=== PATIENT | male | born 1990 | race Caucasian/White ===

== ENCOUNTER 2017-02-28 02:43 | Emergency (ER) | payer MEDICAID ==
[~2017-02-28] VITALS: Ht 160 cm; Wt 84.5 kg
[2017-02-28 02:46] VITALS: Ht 160 cm; Wt 84.5 kg
[2017-02-28] MEDS ORDERED: SOD CHLORIDE 0.9% 1,000 ML IV ONE (02:53)
[2017-02-28] MEDS ORDERED: morphine 4 MG/ML VIAL IV ONE (02:55)
[2017-02-28] MEDS ORDERED: ONDANSETRON 4 MG INJ IV ONE (02:55)
[2017-02-28] MEDS ORDERED: KETOROLAC 30 MG INJ IV ONE (02:55)
[2017-02-28 03:21] LABS: ADD SCAN DIFF NO
[2017-02-28 03:28] LABS: BASOPHILS % 0.3 % (0.0-2.0); EOSINOPHILS # 0.1 10^3/ul (0.0-0.5); EOSINOPHILS % 1.1 % (0.0-7.0); HEMATOCRIT 41.6 % (42.0-52.0); HEMOGLOBIN 14.9 g/dl (14.0-18.0); LYMPHOCYTES # 2.8 10^3/ul (0.8-2.9); LYMPHOCYTES % 39.9 % (15.0-51.0); MEAN CORPUSCULAR HEMOGLOBIN 31.6 pg (29.0-33.0); MEAN CORPUSCULAR HGB CONC 35.8 g/dl (32.0-37.0); MEAN CORPUSCULAR VOLUME 88.3 fl (82.0-101.0); MEAN PLATELET VOLUME 9.7 fl (7.4-10.4); MONOCYTE # 0.8 10^3/ul (0.3-0.9); MONOCYTES % 11.5 % (0.0-11.0); NEUTROPHIL # 3.3 10^3/ul (1.6-7.5); NEUTROPHILS % 46.8 % (39.0-77.0); PLATELET COUNT 246 10^3/UL (140-415); RED BLOOD COUNT 4.71 10^6/ul (4.70-6.10); RED CELL DISTRIBUTION WIDTH 12.6 % (11.5-14.5); WHITE BLOOD COUNT 7.1 10^3/ul (4.8-10.8)
[2017-02-28 03:33] LABS: ALBUMIN 4.5 g/dl (3.3-4.9); POTASSIUM 3.1 mmol/L (3.5-5.1)
[2017-02-28 03:35] LABS: CREATININE 1.14 mg/dl (0.61-1.24)
[2017-02-28 03:36] LABS: ALBUMIN/GLOBULIN RATIO 1.36; CALCIUM 9.5 mg/dl (8.4-10.2); TOTAL PROTEIN 7.8 g/dl (6.1-8.1)
[2017-02-28] MEDS ORDERED: NAPR220C2 PO (03:36)
[2017-02-28 03:44] LABS: ADD UMIC YES; URINE BILIRUBIN (Dip) 2+ (NEGATIVE); URINE BLOOD (Dip) 3+ (NEGATIVE); URINE COLOR YELLOW (YELLOW); URINE GLUCOSE (Dip) NEGATIVE (NEGATIVE); URINE KETONES (Dip) 15 (NEGATIVE); URINE LEUKOCYTE ESTERASE (Dip) NEGATIVE (NEGATIVE); URINE NITRITE (Dip) NEGATIVE (NEGATIVE); URINE TOTAL PROTEIN (Dip) 1+ (NEGATIVE); URINE UROBILINOGEN (Dip) 1.0 E.U./dL (0.1-1.0)
[2017-02-28 03:59] LABS: ICTOTEST NEGATIVE (NEGATIVE); URINE RBCS >200 /HPF (0)
[2017-02-28 04:00] LABS: BACTERIA,URINE FEW; MUCUS,URINE FEW; SQUAMOUS EPITHELIAL CELL,UR FEW
--- NOTE | 2017-02-28 04:17 | RADRPT ---
PROCEDURE: CT Abdomen and pelvis without contrast. CLINICAL INDICATION: Abdominal pain. TECHNIQUE: CT scan of the abdomen and pelvis was performed on a multi-detector high-resolution CT scanner. Contiguous axial images were obtained from the lung bases to the ischial tuberosities wit hout intravenous contrast. Coronal and sagittal reformatted images were also obtained. Images were reviewed on the PACS workstation. One or more of the following dose reduction techniques were used: - Automated exposure control. - Adjustment of the mA and/or kV according to patient size. - Use of iterative reconstruction technique. Exam CTD/vol = 10.54 mGy. Total exam DLP = 669.92 mGy-cm. COMPARISON: None. FINDINGS: Evaluation of the lung bases demonstrates no pleural or parenchymal disease. Abdomen: The liver is normal in size. There is no focal mass or dilatation of the biliary tree. T he gallbladder is not distended. Multiple radiolucent gallstones are present. The spleen, pancreas a nd bilateral adrenal glands are within normal limits. Bilateral kidneys are normal in size with no contour deforming mass identified. There are multiple punctate 1 mm right renal calculi. There is mild left-sided hydronephrosis. There is no retroperitoneal adenopathy. The abdominal aorta is of normal caliber. There is no abnormal bowel wall thickening or distension. There is no bowel obstruction or free air . A normal appendix is identified. There is no diverticulosis or diverticulitis. There is no asci felisha. Pelvis: The bladder is unremarkable. There is a 4 x 3 mm calculus at the left ureterovesicular elham ction. The prostate and seminal vesicles are within normal limits. There is no significant pelvic adenopathy or free fluid. Evaluation of the osseous structures demonstrates no suspicious lytic or blastic lesion. IMPRESSION: Left ureterovesicular junction 4 x 3 mm calculus with mild left-sided hydronephrosis. Nonobstructing right renal calculi. Cholelithiasis. .Alex Flynn MD, MD Date Time Electronically viewed and signed by .Alex Flynn MD, MD on 02/28/2017 04:17 .T/
--- NOTE | 2017-02-28 04:46 | ERD ---
ER Documentation Chief Complaint Date/Time DATE: 02/28/17 TIME: 04:45 Chief Complaint left sided abd pain today HPI This is a 27-year-old male left-sided abdominal pain sudden onset earlier today colicky in nature. Mild to moderate intensity. Mild nausea. No vomiting. No fevers or chills. No other current complaints. ROS All systems reviewed and are negative except as per history of present illness. Medications Home Meds Reported Medications Naproxen* (Aleve*) 220 Mg Capsule, 420 MG PO TID, #90 CAP 02/28/17 Allergies Allergies: Coded Allergies: No Known Drug Allergy (Verified Allergy, Mild, 02/28/17) PMhx/Soc Medical and Surgical Hx: pt denies Medical Hx, pt denies Surgical Hx History of Surgery: No Anesthesia Reaction: No Hx Neurological Disorder: No Hx Respiratory Disorders: No Hx Cardiac Disorders: No Hx Psychiatric Problems: No Hx Miscellaneous Medical Probl: No (NO MEDICAL HX) Hx Alcohol Use: No Hx Substance Use: No Hx Tobacco Use: No Smoking Status: Unknown if ever smoked Physical Exam Vitals Vital Signs Date Time Temp Pulse Resp B/P Pulse Ox O2 Delivery O2 Flow Rate FiO2 02/28/17 02:46 98.4 85 20 124/63 100 Physical Exam Const: [] Head: Atraumatic Eyes: Normal Conjunctiva ENT: Normal External Ears, Nose and Mouth. Neck: Full range of motion..~ No meningismus. Resp: Clear to auscultation bilaterally Cardio: Regular rate and rhythm, no murmurs Abd: Soft, non tender, non distended. Normal bowel sounds Skin: No petechiae or rashes Back: No midline or flank tenderness Ext: No cyanosis, or edema Neur: Awake and alert Psych: Normal Mood and Affect Result Diagram: 02/28/17 0300 02/28/17 0300 Results 24 hrs Laboratory Tests Test 02/28/17 03:00 White Blood Count 7.110^3/ul Red Blood Count 4.7110^6/ul Hemoglobin 14.9g/dl Hematocrit 41.6% Mean Corpuscular Volume 88.3fl Mean Corpuscular Hemoglobin 31.6pg Mean Corpuscular Hemoglobin Concent 35.8g/dl Red Cell Distribution Width 12.6% Platelet Count 94440^3/UL Mean Platelet Volume 9.7fl Neutrophils % 46.8% Lymphocytes % 39.9% Monocytes % 11.5% Eosinophils % 1.1% Basophils % 0.3% Nucleated Red Blood Cells % 0.0/100WBC Neutrophils # 3.310^3/ul Lymphocytes # 2.810^3/ul Monocytes # 0.810^3/ul Eosinophils # 0.110^3/ul Basophils # 0.010^3/ul Nucleated Red Blood Cells # 0.010^3/ul Urine Color YELLOW Urine Clarity SLIGHTLY CLOUDY Urine pH 5.5 Urine Specific [place] >=1.030 Urine Ketones 15 Urine Nitrite NEGATIVE Urine Bilirubin 2+ Urine Ictotest NEGATIVE Urine Urobilinogen 1.0 E.U./dL Urine Leukocyte Esterase NEGATIVE Urine Microscopic RBC >200/HPF Urine Microscopic WBC 0-2/HPF Urine Squamous Epithelial Cells FEW Urine Calcium Oxalate Crystals FEW Urine Bacteria FEW Urine Mucus FEW Urine Hemoglobin 3+ Urine Glucose NEGATIVE% Urine Total Protein 1+ Sodium Level 143mmol/L Potassium Level 3.1mmol/L Chloride Level 103mmol/L Carbon Dioxide Level 27mmol/L Anion Gap 16 Blood Urea Nitrogen 19mg/dl Creatinine 1.14mg/dl Glucose Level 116mg/dl Calcium Level 9.5mg/dl Total Bilirubin 2.0mg/dl Direct Bilirubin 0.00mg/dl Indirect Bilirubin 2.0mg/dl Aspartate Amino Transf (AST/SGOT) 30IU/L Alanine Aminotransferase (ALT/SGPT) 23IU/L Alkaline Phosphatase 69IU/L Total Protein 7.8g/dl Albumin 4.5g/dl Globulin 3.30g/dl Albumin/Globulin Ratio 1.36 Lipase 45U/L Current Medications Medications (Trade) Dose Ordered Sig/Abigail Route PRN Reason Start Time Stop Time Status Last Admin Dose Admin Sodium Chloride (NS) 1,000 ml @ 1,000 mls/hr Q1H ONCE IV 02/28/17 02:53 02/28/17 03:52 DC 02/28/17 03:04 Morphine Sulfate (morphine) 4 mg ONCE ONCE IV 02/28/17 02:55 02/28/17 02:56 DC 02/28/17 03:04 Ondansetron HCl (Zofran Inj) 4 mg ONCE ONCE IV 02/28/17 02:55 02/28/17 02:56 DC 02/28/17 03:04 Ketorolac Tromethamine (Toradol) 30 mg ONCE ONCE IV 02/28/17 02:55 02/28/17 02:56 DC 02/28/17 03:04 Procedures/MDM Medical decision-making: Patient comes in with looks to be acute renal colic. At this point clinically stable. Discharge home with Flomax and [place]. Cipro for antibiotic coverage. Follow with PCP. Return in 8 hours for serial abdominal exams. Departure Diagnosis: Primary Impression: Kidney stone Condition: Stable JOSÉ MIGUEL GALVAN February 28, 2017 04:46
[2017-02-28] MEDS ORDERED: TAMS-14 PO (04:50)
[2017-02-28] MEDS ORDERED: IBUP-1542 PO (04:50)
[2017-02-28] MEDS ORDERED: CIPR500T4 PO (04:50)
[2017-02-28] MEDS ORDERED: HYDR-902 PO (04:50)
[2017-02-28 05:41] VITALS: BP 109/57; PULSE 74; RESP 17; TEMP 98.1
== END 2017-02-28 05:42 | disposition home or self-care (01) ==
LOC: E/R 02:43
DX: N20.0 Calculus of kidney (principal); R11.0 Nausea
CPT/HCPCS: 36415; 74176; 80053; 81001; 83690; 85025; 96374; 96375; J1885; J2270; J2405; J7030; Z7502; 81003